=== PATIENT | male | born 1945 | race Caucasian/White ===

== ENCOUNTER 2016-10-05 08:26 | Emergency (ER) | payer MEDICARE, MEDICAID ==
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
--- NOTE | 2016-10-05 10:09 | CR ---
Right humerus There is a comminuted fracture of the mid diaphysis of the humerus with slight offset Pression: Comminuted fracture mid humerus
--- NOTE | 2016-10-05 10:11 | CR ---
Right shoulder Visible at the distal end of the examination is the comminuted fracture of the mid humerus. Head art iculates with the glenoid normally. 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 Impression: Comminuted fracture of the diaphysis of the humerus. AC joint osteoarthropathy without s houlder dislocation
--- NOTE | 2016-10-05 10:12 | CR ---
Right elbow There is no significant joint effusion. The dilatation is normal. No focal or generalized bony abnor malities are seen. Impression: No significant abnormal findings
[2016-10-05] MEDS ORDERED: Morphine 2 MG/ML Syringe IVPUSH ONE (10:19)
--- NOTE | 2016-10-05 11:57 | CR ---
Right humerus There is a comminuted fracture of the mid humerus improved in relative alignment since preceding exa mination Impression: Improved alignment at site of mid humeral comminuted fracture
[2016-10-05 13:53] VITALS: BP 133/69
== END 2016-10-05 13:51 | disposition home or self-care (01) ==
LOC: MW.ED 08:26
DX: S42.351A Displaced comminuted fracture of shaft of humerus, right arm, initial encounter for closed fracture (principal); F32.9 Major depressive disorder, single episode, unspecified; F17.210 Nicotine dependence, cigarettes, uncomplicated; Z93.0 Tracheostomy status; Z79.82 Long term (current) use of aspirin; Z79.899 Other long term (current) drug therapy; Z88.1 Allergy status to other antibiotic agents; Z88.2 Allergy status to sulfonamides; W19.XXXA Unspecified fall, initial encounter
CPT/HCPCS: 36415; 73030; 73060; 73080; 84550; 85025; 96374; 99284; A4566; J2270

== ENCOUNTER 2016-10-07 14:22 | Emergency (ER) | payer MEDICARE, MEDICAID ==
[2016-10-07] MEDS ORDERED: HYDROmorphone 1 MG/ML Syringe IM ONE (14:49)
[2016-10-07] MEDS ORDERED: LORazepam 0.5 MG Tab PO ONE (15:17)
[2016-10-07] MEDS ORDERED: HYDROmorphone 2 MG Tab PO ONE (15:23)
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
[2016-10-07 16:13] VITALS: BP 138/80
== END 2016-10-07 16:12 | disposition home or self-care (01) ==
LOC: MW.ED 14:22
DX: S42.331D Displaced oblique fracture of shaft of humerus, right arm, subsequent encounter for fracture with routine healing (principal); F32.9 Major depressive disorder, single episode, unspecified; Z88.2 Allergy status to sulfonamides; Z88.1 Allergy status to other antibiotic agents; Z79.82 Long term (current) use of aspirin; Z79.899 Other long term (current) drug therapy; X58.XXXD Exposure to other specified factors, subsequent encounter
CPT/HCPCS: 99282; A9270; 99283

== ENCOUNTER 2016-10-09 14:51 | Emergency (ER) | payer MEDICARE, MEDICAID ==
[2016-10-09] MEDS ORDERED: HYDROmorphone 1 MG/ML Syringe IM ONE (15:17)
[2016-10-09] MEDS ORDERED: Diazepam 2 MG Tab PO ONE (15:17)
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
[2016-10-09 19:57] VITALS: BP 129/81
== END 2016-10-09 16:25 | disposition home health service (06) ==
LOC: MW.ED 14:51
DX: S42.341D Displaced spiral fracture of shaft of humerus, right arm, subsequent encounter for fracture with routine healing (principal); F32.9 Major depressive disorder, single episode, unspecified; Z88.2 Allergy status to sulfonamides; Z88.1 Allergy status to other antibiotic agents; Z79.82 Long term (current) use of aspirin; Z79.899 Other long term (current) drug therapy; Z98.890 Other specified postprocedural states; X58.XXXD Exposure to other specified factors, subsequent encounter
CPT/HCPCS: 96372; 99283; A9270; J1170

== ENCOUNTER 2016-10-24 11:21 | Day surgery (SDC) | payer MEDICARE, MEDICAID ==
[~2016-10-24 11:21] MED LIST: ceFAZolin 1 GM in Premix Bag 1 BAG IV SCH
[2016-10-24] MEDS: Lactated Ringers 1,000 ML IV SCH (12:03)
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
[2016-10-24] MEDS ORDERED: fentaNYL 100 MCG/2 ML SDV ONE ×3 (14:25→16:41)
[2016-10-24] MEDS ORDERED: Propofol 200 MG/20 ML SDV ONE ×2 (14:25→14:26)
[2016-10-24] MEDS ORDERED: Midazolam 1 MG/ML 2 ML SDV ONE (14:25)
[2016-10-24] MEDS ORDERED: Lidocaine 2% 5 ML SDV ONE (14:25)
[2016-10-24] MEDS ORDERED: Acetaminophen/HYDROcodone 325-10 MG Tab PO PRN (17:33)
[2016-10-24] MEDS ORDERED: diphenhydrAMINE 25 MG Cap PO PRN (17:33)
[2016-10-24] MEDS ORDERED: Morphine 4 MG/ML Syringe IVPUSH PRN (17:33)
[2016-10-24] MEDS ORDERED: Ondansetron 4 MG/2 ML SDV IV PRN (17:33)
[2016-10-24] MEDS ORDERED: Docusate Sodium 100 MG Cap PO SCH (17:45)
--- NOTE | 2016-10-24 17:50 | PCM.OPNOTE ---
- General Post-Op/Procedure Note Date of Surgery/Procedure: 10/24/16 Operative Procedure(s): I&D R humerus and ORIF R humerus Post-Op Diagnosis: R midshaft humerus fracture with pressure ulcer Anesthesia Technique: General ET Tube Primary Surgeon: Aspen Carolina Parcel Contractor: Yenni Lawrence EBSarah in mLs: 150 Condition: Good Free Text/Narrative:: #[id number]
[2016-10-24] MEDS: fentaNYL 100 MCG/2 ML SDV IVPUSH PRN ×2 (17:57→18:05)
--- NOTE | 2016-10-24 18:25 | PCM.POSTAN ---
POST ANESTHESIA ASSESSMENT - MENTAL STATUS Mental Status: Alert, Oriented - RESPIRATORY Respiratory Status: Respiratory Rate WNL, Airway Patent, O2 Saturation Stable - CARDIOVASCULAR CV Status: Pulse Rate WNL, Blood Pressure Stable - GASTROINTESTINAL GI Status: No Symptoms - PAIN Pain Score: 0 - POST OP HYDRATION Hydration Status: Adequate & Stable
[2016-10-24] MEDS ORDERED: Phenytoin 100 MG Cap.ER PO SCH (21:00)
[2016-10-24] MEDS: risperiDONE 0.25 MG Tab PO SCH (21:40)
[2016-10-24] MEDS: Famotidine 20 MG Tab PO SCH (21:45)
[2016-10-24] MEDS: ceFAZolin 2 GM in Premix Bag 1 BAG IV SCH (22:39)
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
[2016-10-25] MEDS: ceFAZolin 2 GM in Premix Bag 1 BAG IV SCH (05:08)
--- NOTE | 2016-10-25 05:55 | PCM48HPAN ---
Post Anesthesia Note - EVALUATION WITHIN 48HRS OF ANESTHETIC Vital Signs in Normal Range: Yes Patient Participated in Evaluation: Yes (back to baseline-h/o brain trauma) Respiratory Function Stable: Yes (on 2 L O2) Airway Patent: Yes Cardiovascular Function Stable: Yes Hydration Status Stable: Yes Pain Control Satisfactory: Yes Nausea and Vomiting Control Satisfactory: Yes Mental Status Recovered: Yes (back to baseline)
[2016-10-25] MEDS: Lactated Ringers 1,000 ML IV SCH (06:49)
[2016-10-25 07:52] VITALS: BP 116/63
[2016-10-25] MEDS: risperiDONE 0.25 MG Tab PO SCH (08:19)
[2016-10-25] MEDS: Famotidine 20 MG Tab PO SCH (08:19)
--- NOTE | 2016-10-25 08:26 | PCM.SURGPN ---
- General Info Date of Service: 10/25/16 Date of Surgery/Procedure: 10/24/16 POD#: 1 Functional Status: Reports: Pain Controlled, Tolerating Diet, Ambulating, Urinating - Review of Systems General: Reports: No Symptoms HEENT: Reports: No Symptoms Pulmonary: Reports: No Symptoms Cardiovascular: Reports: No Symptoms Gastrointestinal: Reports: No Symptoms Genitourinary: Reports: No Symptoms Musculoskeletal: Reports: Arm Pain, Joint Swelling Skin: Reports: No Symptoms Neurological: Reports: Pre-Existing Deficit, Trouble Speaking - Patient Data Vitals - Most Recent: Last Vital Signs Temp 36.3 C 10/25/16 07:51 Pulse 109 H 10/25/16 07:51 Resp 20 10/25/16 07:51 BP 116/63 10/25/16 07:51 Pulse Ox 93 L 10/25/16 07:51 Weight - Most Recent: 79.379 kg I&O - Last 24 Hours: Intake & Output 10/24/16 10/25/16 10/25/16 22:59 06:59 14:59 Intake Total 1450 1100 Output Total 200 Balance 1250 1100 Lab Results Last 24 Hrs: Laboratory Results - last 24 hr 10/24/16 10/25/16 Range/Units 12:32 07:42 Hgb 10.6 L (13.0-17.0) g/dL Hct 32.4 L (38.0-50.0) % Blood Type A POSITIVE Antibody Screen NEGATIVE Med Orders - Current: Current Medications Hydrocodone Bitart/Acetaminophen (Henefer 325-10 Mg) 1 - 2 tab PO Q4H PRN PRN Reason: Pain Last Admin: 10/25/16 06:24 Dose: 2 tab Aspirin (Aspirin) 81 mg PO DAILY [facility] Last Admin: 10/25/16 08:19 Dose: 81 mg Diphenhydramine HCl (Benadryl) 25 - 50 mg PO Q6H PRN PRN Reason: Itching Docusate Sodium (Colace) 100 mg PO ASDIRECTED [facility] Famotidine (Pepcid) 20 mg PO BID [facility] Last Admin: 10/25/16 08:19 Dose: 20 mg Fentanyl (Sublimaze) 50 mcg IVPUSH Q5M PRN PRN Reason: Pain (severe 7-10) Stop: 10/25/16 17:37 Last Admin: 10/24/16 18:05 Dose: 50 mcg Cefazolin Sodium/Dextrose 1 gm (/ Premix) 50 mls @ 100 mls/hr IV ONCALL [facility] Lactated Ringer's (Ringers, Lactated) 1,000 mls @ 100 mls/hr IV ASDIRECTED [facility] Last Admin: 10/25/16 06:49 Dose: 100 mls/hr Morphine Sulfate (Morphine) 1 - 3 mg IVPUSH Q3H PRN PRN Reason: Pain Last Admin: 10/24/16 19:45 Dose: 2 mg Ondansetron HCl (Zofran) 4 mg IV Q6HR PRN PRN Reason: NAUSEA/VOMITING Desvenlafaxine Succinate [Pristiq] 100 Mg 1 each PO DAILY [facility] Phenobarbital (Phenobarbital) 180 mg PO BEDTIME [facility] Last Admin: 10/24/16 21:40 Dose: 180 mg Phenytoin Sodium (Dilantin) 50 mg PO DAILY [facility] Phenytoin Sodium (Phenytoin) 300 mg PO BEDTIME [facility] Last Admin: 10/24/16 21:45 Dose: 300 mg Polyethylene Glycol (Miralax) 17 gm PO DAILY [facility] Last Admin: 10/25/16 08:21 Dose: 17 gm Risperidone (Risperidal) 0.25 mg PO BID [facility] Last Admin: 10/25/16 08:19 Dose: 0.25 mg Discontinued Medications Fentanyl (Sublimaze) Confirm Administered Dose 200 mcg .ROUTE .STK-MED ONE Stop: 10/24/16 14:26 Fentanyl (Sublimaze) Confirm Administered Dose 100 mcg .ROUTE .STK-MED ONE Stop: 10/24/16 15:39 Fentanyl (Sublimaze) Confirm Administered Dose 100 mcg .ROUTE .STK-MED ONE Stop: 10/24/16 16:42 Cefoxitin Sodium (Mefoxin In Dextrose,Iso-Osm 1 Gm/50 Ml) Confirm Administered Dose 50 mls @ as directed .ROUTE .STK-MED ONE Stop: 10/24/16 14:25 Cefazolin Sodium/Dextrose 2 gm (/ Premix) 50 mls @ 100 mls/hr IV Q8HR [facility] Stop: 10/25/16 06:29 Last Admin: 10/25/16 05:08 Dose: 100 mls/hr Lidocaine (Xylocaine-Mpf 2%) Confirm Administered Dose 10 ml .ROUTE .STK-MED ONE Stop: 10/24/16 14:26 Midazolam HCl (Versed 1 Mg/Ml) Confirm Administered Dose 2 mg .ROUTE .STK-MED ONE Stop: 10/24/16 14:26 Propofol (Diprivan 20 Ml) Confirm Administered Dose 400 mg .ROUTE .STK-MED ONE Stop: 10/24/16 14:26 Propofol (Diprivan 20 Ml) Confirm Administered Dose 200 mg .ROUTE .STK-MED ONE Stop: 10/24/16 14:27 - Exam Wound/Incisions: Dressing Dry and Intact General: Alert, Oriented Lungs: Normal Respiratory Effort Cardiovascular: Regular Rate Extremities: Other (RUE in sling. Dressing dry and in place. Has previous right sided weakness, no active ROM.) Neurological: No New Focal Deficit Psy/Mental Status: Alert, Normal Affect, Normal Mood - Problem List Review Problem List Initiated/Reviewed/Updated: Yes - My Orders Last 24 Hours: Active Orders 24 hr Category Date Time Status Admission Status [Patient Status] [ADT] Routine ADT 10/24/16 18:29 Active Activity as Tolerated [RC] .Routine Care 10/24/16 17:34 Active Insert Cheung Catheter [Insert Urinary Catheter] [OM.PC] Care 10/24/16 13:45 Ordered Q24H Intake and Output [RC] ASDIRECTED Care 10/24/16 17:34 Active Neurovascular Check [RC] Q2HR Care 10/24/16 17:34 Active Notify Provider Vital Signs [RC] ASDIRECTED Care 10/24/16 17:34 Active RT Incentive Spirometry [RC] ASDIRECTED Care 10/24/16 17:34 Active Remove Cheung Catheter [Urinary Catheter Removal] [RC] Care 10/24/16 22:15 Active Per Unit Routine Vital Signs [RC] Q4H Care 10/24/16 17:34 Active Fluoro Up To 1Hr [CR] Routine Exams 10/24/16 17:11 Taken HEMOGLOBIN/HEMATOCRIT,HH [HEME] DAILY Lab 10/26/16 07:00 Ordered HEMOGLOBIN/HEMATOCRIT,HH [HEME] DAILY Lab 10/27/16 07:00 Ordered Acetaminophen/HYDROcodone [Henefer 325-10 MG] Med 10/24/16 17:33 Active 1 - 2 tab PO Q4H PRN Aspirin Med 10/25/16 09:00 Active 81 mg PO DAILY Docusate Sodium [Colace] Med 10/24/16 17:45 Active 100 mg PO ASDIRECTED Famotidine [Pepcid] Med 10/24/16 21:00 Active 20 mg PO BID Morphine Med 10/24/16 17:33 Active 1 - 3 mg IVPUSH Q3H PRN Ondansetron [Zofran] Med 10/24/16 17:33 Active 4 mg IV Q6HR PRN PHENobarbital Med 10/24/16 21:00 Active 180 mg PO BEDTIME Patient's Own Medication [Ptom] Med 10/25/16 09:00 Active 1 each PO DAILY Phenytoin Med 10/24/16 21:00 Active 300 mg PO BEDTIME Phenytoin [Dilantin] Med 10/25/16 09:00 Active 50 mg PO DAILY Polyethylene Glycol 3350 [MiraLAX] Med 10/25/16 09:00 Active 17 gm PO DAILY diphenhydrAMINE [Benadryl] Med 10/24/16 17:33 Active 25 - 50 mg PO Q6H PRN fentaNYL [Sublimaze] Med 10/24/16 17:37 Active 50 mcg IVPUSH Q5M PRN risperiDONE [RisperiDAL] Med 10/24/16 21:00 Active 0.25 mg PO BID Ice Therapy [OM.PC] Routine Oth 10/24/16 17:34 Ordered Medication Orders Hydrocodone Bitart/Acetaminophen (Henefer 325-10 Mg) 1 - 2 tab PO Q4H PRN PRN Reason: Pain Last Admin: 10/25/16 06:24 Dose: 2 tab Aspirin (Aspirin) 81 mg PO DAILY [facility] Last Admin: 10/25/16 08:19 Dose: 81 mg Diphenhydramine HCl (Benadryl) 25 - 50 mg PO Q6H PRN PRN Reason: Itching Docusate Sodium (Colace) 100 mg PO ASDIRECTED KT Famotidine (Pepcid) 20 mg PO BID [facility] Last Admin: 10/25/16 08:19 Dose: 20 mg Admin: 10/24/16 21:45 Dose: 20 mg Fentanyl (Sublimaze) 50 mcg IVPUSH Q5M PRN PRN Reason: Pain (severe 7-10) Stop: 10/25/16 17:37 Last Admin: 10/24/16 18:05 Dose: 50 mcg Admin: 10/24/16 17:57 Dose: 50 mcg Cefazolin Sodium/Dextrose 1 gm (/ Premix) 50 mls @ 100 mls/hr IV ONCALL [facility] Lactated Ringer's (Ringers, Lactated) 1,000 mls @ 100 mls/hr IV ASDIRECTED [facility] Last Admin: 10/25/16 06:49 Dose: 100 mls/hr Infusion: 10/24/16 22:03 Dose: 100 mls/hr Admin: 10/24/16 12:03 Dose: 100 mls/hr Morphine Sulfate (Morphine) 1 - 3 mg IVPUSH Q3H PRN PRN Reason: Pain Last Admin: 10/24/16 19:45 Dose: 2 mg Ondansetron HCl (Zofran) 4 mg IV Q6HR PRN PRN Reason: NAUSEA/VOMITING Desvenlafaxine Succinate [Pristiq] 100 Mg 1 each PO DAILY [facility] Phenobarbital (Phenobarbital) 180 mg PO BEDTIME [facility] Last Admin: 10/24/16 21:40 Dose: 180 mg Phenytoin Sodium (Dilantin) 50 mg PO DAILY [facility] Phenytoin Sodium (Phenytoin) 300 mg PO BEDTIME [facility] Last Admin: 10/24/16 21:45 Dose: 300 mg Polyethylene Glycol (Miralax) 17 gm PO DAILY [facility] Last Admin: 10/25/16 08:21 Dose: 17 gm Risperidone (Risperidal) 0.25 mg PO BID [facility] Last Admin: 10/25/16 08:19 Dose: 0.25 mg Admin: 10/24/16 21:40 Dose: 0.25 mg - Assessment Assessment (Free Text/Narrative):: Patient alert in bed this AM. Denies pain today. Tolerating diet. Hgb 10.6. VSS. - Plan Plan (Free Text/Narrative):: Continue pain management. Patient DC leona today.
[2016-10-25] MEDS ORDERED: Phenytoin 50 MG Tab.Chew PO SCH (09:00)
[2016-10-25] MEDS ORDERED: Polyethylene Glycol 3350 Powder 17 GM Packet PO SCH (09:00)
[2016-10-25] MEDS ORDERED: Aspirin 81 MG Tab.Chew PO SCH (09:00)
[2016-10-25] MEDS ORDERED: Desvenlafaxine Succinate [Pristiq] 100 MG PO SCH (09:00)
--- NOTE | 2016-10-25 09:47 | CR ---
EXAMINATION: Right humerus HISTORY: ORIF COMPARISON: 10/18/2016 TECHNIQUE: 6 views FINDINGS/IMPRESSION: Screw and plate hardware is noted fixating the comminuted mid right humerus frac ture.
--- NOTE | 2016-10-25 14:57 | PCM.SN ---
- Free Text/Narrative Note: Discharge summary See discharge plan for complete list of discharge medications and instructions. Dictation #: [id number]
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
== END 2016-10-25 10:10 | disposition home or self-care (01) ==
LOC: MW.SDS 11:21 → MW.MS 17:50 → UNDOADMOB 17:50 → MW.MS 18:29 → MW.SDS 10-25 10:10
PROVIDERS: ATTEND Orthopaedic Surgery
PROC: 0PSF04Z Reposition Right Humeral Shaft with Internal Fixation Device, Open Approach (ICD-10-PCS; principal; 2016-10-24)
DX: S42.301A Unspecified fracture of shaft of humerus, right arm, initial encounter for closed fracture (principal); L89.899 Pressure ulcer of other site, unspecified stage; Z88.1 Allergy status to other antibiotic agents; Z79.82 Long term (current) use of aspirin; Z79.2 Long term (current) use of antibiotics; Z79.899 Other long term (current) drug therapy; K21.9 Gastro-esophageal reflux disease without esophagitis; J30.9 Allergic rhinitis, unspecified; Z86.73 Personal history of transient ischemic attack (TIA), and cerebral infarction without residual deficits
CPT/HCPCS: 24515; 36415; 76000; 85014; 85018; 86850; 86900; 86901; A9270; C1713; J0690; J0694; J2250; J2270; J3010; J7120; 00400; J2704

== ENCOUNTER 2017-02-16 13:43 | Emergency (ER) | payer MEDICARE, MEDICAID ==
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
[2017-02-16] MEDS ORDERED: Morphine 10 MG/ML Syringe IV ONE (15:13)
[2017-02-16 17:28] VITALS: BP 126/68
--- NOTE | 2017-02-17 16:46 | CR ---
EXAM DATE: 02/16/17 PATIENT'S AGE: 71 Patient: ANA FLORES Facility: [place], [place] Site . Site : 1945 Study: XRay Extremity Right ELBOW [id number]/21/2017 3:23:50 PM Ordering Physician: Zahira Ahumada Final Report: Indication: Pain. Technique: Right elbow three views. Comparison: Right humerus 02/16/2017 and 12/29/2016. Findings: No acute fracture or dislocation. Cortical irregularity involving the lateral epicondyle suggesting remote epicondylitis. Plate and screw fixation of the distal humerus appears intact. No evidence of joint effusion or radiopaque foreign body. Impression: No acute osseous abnormality of the right elbow. Dictated by Jeromy Giang MD @ 02/16/2017 4:22:50 PM Dictated by: Jeromy Giang MD @ 02/16/2017 16:22:57 (Electronic Signature) Report Signed by Proxy. NICHOLE
--- NOTE | 2017-02-17 16:48 | CR ---
EXAM DATE: 02/16/17 PATIENT'S AGE: 71 Patient: ANA FLORES Facility: [place], [place] Site . Site : 1945 Study: XRay Shoulder Right [id number]/21/2017 3:21:49 PM Ordering Physician: Zahira Ahumada Final Report: Indication: Pain. Technique: Right shoulder two views. Comparison: Right humerus radiographs 12/29/2016. Findings: There is an acute obliquely oriented mildly impacted fracture involving the proximal diaphysis of the humerus. Plate and screw fixation of remote mid diaphyseal fracture with associated callus formation and angulation has not significantly changed. Degenerative changes of the acromioclavicular joint. No evidence of glenohumeral joint dislocation. Impression: Acute mildly impacted fracture of the proximal humeral diaphysis. No glenohumeral dislocation. Dictated by Jeromy Giang MD @ 02/16/2017 4:19:33 PM Dictated by: Jeromy Giang MD @ 02/16/2017 16:19:55 (Electronic Signature) Report Signed by Proxy. [facility]
--- NOTE | 2017-02-17 16:49 | CR ---
EXAM DATE: 02/16/17 PATIENT'S AGE: 71 Patient: ANA FLORES Facility: [place], [place] Site . Site : 1945 Study: XRay Extremity Right HUMERUS [id number]/21/2017 3:24:35 PM Ordering Physician: Zahira Ahumada Final Report: Indication: Pain. Technique: Right humerus two views. Comparison: Right humerus 12/29/2016. Findings: There is an acute obliquely oriented mildly impacted fracture involving the proximal diaphysis of the right humerus. There is mild medial and dorsal angulation of the distal fracture fragment. Lateral plate and screw fixation of the prior mid diaphyseal humerus fracture with associated callus formation and angulation is unchanged. Lateral soft tissue swelling. No radiopaque foreign body demonstrated. Impression: Acute mildly impacted and angulated fracture of the proximal right humerus. Dictated by Jeromy Giang MD @ 02/16/2017 4:24:50 PM Dictated by: Jeromy Giang MD @ 02/16/2017 16:25:05 (Electronic Signature) Report Signed by Proxy. [facility]
== END 2017-02-16 17:15 | disposition home or self-care (01) ==
LOC: MW.ED 13:43
DX: S42.201A Unspecified fracture of upper end of right humerus, initial encounter for closed fracture (principal); F17.210 Nicotine dependence, cigarettes, uncomplicated; F32.9 Major depressive disorder, single episode, unspecified; Z79.82 Long term (current) use of aspirin; Z79.899 Other long term (current) drug therapy; Z88.2 Allergy status to sulfonamides; Z88.1 Allergy status to other antibiotic agents; Z98.890 Other specified postprocedural states; X58.XXXA Exposure to other specified factors, initial encounter
CPT/HCPCS: 73030; 73060; 73080; 96374; 99283; J2270

== ENCOUNTER 2018-04-04 17:23 | Emergency (ER) | payer MEDICARE, MEDICAID ==
[2018-04-04 17:33] VITALS: BP 141/90
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
== END 2018-04-04 18:15 | disposition home or self-care (01) ==
LOC: MW.ED 17:23
DX: R56.9 Unspecified convulsions (principal); Z79.82 Long term (current) use of aspirin; Z79.899 Other long term (current) drug therapy; Z88.8 Allergy status to other drugs, medicaments and biological substances; Z90.49 Acquired absence of other specified parts of digestive tract; Z88.2 Allergy status to sulfonamides
CPT/HCPCS: 99284

== ENCOUNTER 2019-10-26 19:38 | Emergency (ER) | payer MEDICARE, MEDICAID ==
[2019-10-26] MEDS ORDERED: Sodium Chloride 0.9% 2.5 ML Syringe FLUSH PRN ×2 (19:47→22:16)
[2019-10-26] MEDS ORDERED: Sodium Chloride 0.9% 10 ML Syringe FLUSH PRN ×2 (19:47→22:16)
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
[2019-10-26 20:59] LABS: CARBON DIOXIDE,CO2 24.7 mmol/L (21.0-32.0); POTASSIUM,K 4.5 mmol/L (3.5-5.1)
--- NOTE | 2019-10-26 21:59 | CR ---
INDICATION: Shortness of breath. COMPARISON: 10/21/2016. FINDINGS: A portable AP semi upright view of the chest was obtained. The cardiac silhouette and pulmonary vasculature are within normal limits. There is an infiltrate in the right lung base. The lungs otherwise are clear. IMPRESSION: Right lung base pneumonia. Dictated by Ramiro Otero MD @ Oct 26 2019 9:56PM Signed by Dr. Ramiro Otero @ Oct 26 2019 9:58PM
[2019-10-26] MEDS ORDERED: Sodium Chloride 0.9% 1,000 ML IRR SCH ×2 (22:15→23:00)
[2019-10-26] MEDS ORDERED: Piperacillin/Tazobactam 4.5 GM in Sodium Chloride 0.9% 100 ML IV ONE (22:16)
[2019-10-26] MEDS ORDERED: Vancomycin 1.5 GM in Dextrose 5% in Water 250 ML IV ONE ×2 (22:16)
[2019-10-26] MEDS ORDERED: Dexamethasone 10 MG/ML SDV IVPUSH ONE (23:02)
[2019-10-26] MEDS ORDERED: Azithromycin 500 MG in Sodium Chloride 0.9% 250 ML IV SCH (23:15)
[2019-10-27] MEDS ORDERED: Sodium Chloride 0.9% 250 ML IV SCH (00:45)
[2019-10-27] MEDS ORDERED: Sodium Chloride 0.9% 500 ML IV SCH (00:45)
[2019-10-27 01:06] VITALS: BP 122/88; PULSE 82
== END 2019-10-27 01:37 | disposition other institution (70) ==
LOC: MW.ED 19:38
DX: A41.89 Other specified sepsis (principal); U07.1 COVID-19; R65.20 Severe sepsis without septic shock; J12.89 Other viral pneumonia; N17.9 Acute kidney failure, unspecified; E87.2 Acidosis; R09.02 Hypoxemia; K21.9 Gastro-esophageal reflux disease without esophagitis; R56.9 Unspecified convulsions; F32.9 Major depressive disorder, single episode, unspecified; Z88.2 Allergy status to sulfonamides; Z79.82 Long term (current) use of aspirin; Z79.899 Other long term (current) drug therapy
CPT/HCPCS: 36415; 36600; 71045; 80053; 82803; 83605; 83880; 84484; 85025; 85379; 85610; 86140; 87040; 93005; 96361; 96365; 96366; 96367; 96368; 96375; 99291; 99292; J0456; J1100; J2543; J3370; J7050; J7060; U0002

== ENCOUNTER 2019-11-24 11:17 | Emergency (ER) | payer MEDICARE, MEDICAID ==
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
[2019-11-24 12:10] LABS: BLOOD UREA NITROGEN,BUN 19 mg/dL (7.0-18.0); CARBON DIOXIDE,CO2 29.3 mmol/L (21.0-32.0); CHLORIDE,CL 103 mmol/L (98-107); GLUCOSE RANDOM 77 mg/dL (74-106); LIPASE 151 U/L (73-393); POTASSIUM,K 4.5 mmol/L (3.5-5.1); SODIUM,NA 139 mmol/L (136-148)
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
[2019-11-24 16:21] VITALS: BP 115/73; PULSE 69
== END 2019-11-24 13:29 | disposition home or self-care (01) ==
LOC: MW.ED 11:17
DX: R10.9 Unspecified abdominal pain (principal); K21.9 Gastro-esophageal reflux disease without esophagitis; F32.9 Major depressive disorder, single episode, unspecified; Z79.82 Long term (current) use of aspirin; Z88.2 Allergy status to sulfonamides; Z88.1 Allergy status to other antibiotic agents; Z79.899 Other long term (current) drug therapy
CPT/HCPCS: 36415; 74176; 74176-26; 80053; 83690; 84484; 85025; 93005; 99284; 99285-25

== ENCOUNTER 2022-04-03 10:57 | Inpatient (IN) | payer MEDICARE, MEDICAID ==
[2022-04-03 11:39] LABS: CARBON DIOXIDE,CO2 26.4 mmol/L (21.0-32.0); POTASSIUM,K 3.5 mmol/L (3.5-5.1)
[2022-04-03 12:13] LABS: CORONAVIRUS COVID-19 NAA POSITIVE (NEGATIVE); INFLUENZA A NAA NEGATIVE (NEGATIVE); INFLUENZA B NAA NEGATIVE (NEGATIVE); RESPIRATORY SYNCYTIAL VIR NAA NEGATIVE (NEGATIVE)
[2022-04-03] MEDS ORDERED: Dexamethasone 10 MG/ML SDV IVPUSH ONE (15:18)
[2022-04-03] MEDS ORDERED: Iopamidol 755 MG/ML 500 ML Multipack Bottle IVPUSH STA (16:14)
[2022-04-03] MEDS ORDERED: Albuterol/Ipratropium 3.0-0.5 MG/3 ML Neb Soln NEB PRN (20:08)
[2022-04-03] MEDS ORDERED: Dexamethasone 4 MG Tab PO SCH (20:15)
[2022-04-03] MEDS: Enoxaparin 40 MG/0.4 ML Syringe SUBCUT SCH (20:46)
[2022-04-03 20:55] LABS: CARBON DIOXIDE,CO2 27.2 mmol/L (21.0-32.0); POTASSIUM,K 3.8 mmol/L (3.5-5.1)
[2022-04-03] MEDS ORDERED: REMDESIVIR 200 MG in Sodium Chloride 0.9% 250 ML IV ONE (22:00)
[2022-04-04 06:51] LABS: CARBON DIOXIDE,CO2 30.8 mmol/L (21.0-32.0); POTASSIUM,K 3.9 mmol/L (3.5-5.1)
[2022-04-04] MEDS: Dexamethasone 4 MG Tab PO SCH (08:24)
[2022-04-04] MEDS: lamoTRIgine 100 MG Tab PO SCH ×2 (09:57→20:28)
[2022-04-04] MEDS ORDERED: Ondansetron 4 MG/2 ML SDV IVPUSH PRN (10:55)
[2022-04-04] MEDS ORDERED: Docusate Sodium 100 MG Cap PO PRN (10:55)
[2022-04-04] MEDS ORDERED: Sodium Chloride 0.9% 2.5 ML Syringe FLUSH PRN (10:55)
[2022-04-04] MEDS ORDERED: Acetaminophen 325 MG Tab PO PRN (10:55)
[2022-04-04] MEDS ORDERED: Sodium Chloride 0.9% 10 ML Syringe FLUSH PRN (10:55)
[2022-04-04] MEDS ORDERED: Polyethylene Glycol 3350 Powder 17 GM Packet PO PRN (10:55)
[2022-04-04] MEDS: Desvenlafaxine [Desvenlafaxine Er] 100 MG Tab.Er.24h PO SCH (11:47)
[2022-04-04] MEDS: Albuterol/Ipratropium 3.0-0.5 MG/3 ML Neb Soln NEB SCH ×4 (12:44→21:32)
[2022-04-04] MEDS ORDERED: LORazepam 2 MG/ML SDV IVPUSH PRN (15:27)
[2022-04-04] MEDS: risperiDONE 0.25 MG Tab PO SCH (20:28)
[2022-04-04] MEDS: Phenytoin 100 MG Cap.ER PO SCH (20:28)
[2022-04-04] MEDS: Enoxaparin 40 MG/0.4 ML Syringe SUBCUT SCH (20:29)
[2022-04-04] MEDS: PHENOBARBITAL 97.2 MG PO SCH (20:29)
[2022-04-04] MEDS: REMDESIVIR 100 MG in Sodium Chloride 0.9% 100 ML IV SCH (20:32)
[2022-04-05] MEDS: Albuterol/Ipratropium 3.0-0.5 MG/3 ML Neb Soln NEB SCH ×6 (01:26→22:26)
[2022-04-05] MEDS: Pantoprazole 40 MG Tab.CR PO SCH (07:03)
[2022-04-05 07:44] LABS: CARBON DIOXIDE,CO2 27.7 mmol/L (21.0-32.0); POTASSIUM,K 3.7 mmol/L (3.5-5.1)
[2022-04-05] MEDS: Dexamethasone 4 MG Tab PO SCH (09:45)
[2022-04-05] MEDS: Desvenlafaxine [Desvenlafaxine Er] 100 MG Tab.Er.24h PO SCH (09:46)
[2022-04-05] MEDS: lamoTRIgine 100 MG Tab PO SCH ×2 (09:46→20:01)
[2022-04-05] MEDS ORDERED: Benzonatate 100 MG Cap PO PRN (11:26)
[2022-04-05] MEDS: REMDESIVIR 100 MG in Sodium Chloride 0.9% 100 ML IV SCH (19:56)
[2022-04-05] MEDS: Enoxaparin 40 MG/0.4 ML Syringe SUBCUT SCH (20:01)
[2022-04-05] MEDS: Phenytoin 100 MG Cap.ER PO SCH (20:02)
[2022-04-05] MEDS: risperiDONE 0.25 MG Tab PO SCH (20:02)
[2022-04-05] MEDS: PHENOBARBITAL 97.2 MG PO SCH (20:02)
[2022-04-06] MEDS: Albuterol/Ipratropium 3.0-0.5 MG/3 ML Neb Soln NEB SCH ×6 (02:53→21:58)
[2022-04-06] MEDS: Pantoprazole 40 MG Tab.CR PO SCH ×2 (06:03→06:51)
[2022-04-06 06:41] LABS: POTASSIUM,K 3.8 mmol/L (3.5-5.1)
[2022-04-06] MEDS: Dexamethasone 4 MG Tab PO SCH (09:45)
[2022-04-06] MEDS: lamoTRIgine 100 MG Tab PO SCH ×2 (09:46→20:14)
[2022-04-06] MEDS: Desvenlafaxine [Desvenlafaxine Er] 100 MG Tab.Er.24h PO SCH (09:59)
[2022-04-06] MEDS ORDERED: REMDESIVIR 100 MG in Sodium Chloride 0.9% 100 ML IV SCH (16:00)
[2022-04-06] MEDS: risperiDONE 0.25 MG Tab PO SCH (20:14)
[2022-04-06] MEDS: PHENOBARBITAL 97.2 MG PO SCH (20:15)
[2022-04-06] MEDS: Phenytoin 100 MG Cap.ER PO SCH (20:15)
[2022-04-06] MEDS: Enoxaparin 40 MG/0.4 ML Syringe SUBCUT SCH (20:16)
[2022-04-07] MEDS: Albuterol/Ipratropium 3.0-0.5 MG/3 ML Neb Soln NEB SCH ×3 (01:06→10:20)
[2022-04-07] MEDS: Pantoprazole 40 MG Tab.CR PO SCH ×2 (06:11→07:45)
[2022-04-07 06:44] LABS: CARBON DIOXIDE,CO2 26.3 mmol/L (21.0-32.0); POTASSIUM,K 3.9 mmol/L (3.5-5.1)
[2022-04-07] MEDS: lamoTRIgine 100 MG Tab PO SCH (08:57)
[2022-04-07] MEDS: Dexamethasone 4 MG Tab PO SCH (08:58)
[2022-04-07] MEDS: Desvenlafaxine [Desvenlafaxine Er] 100 MG Tab.Er.24h PO SCH (09:01)
[2022-04-07] MEDS ORDERED: REMDESIVIR 100 MG in Sodium Chloride 0.9% 100 ML IV SCH (12:00)
[2022-04-07 12:28] VITALS: BP 118/69; PULSE 83
== END 2022-04-07 13:45 | DRG 177 ==
LOC: MW.ED 10:57 → MW.MS 15:41
PROVIDERS: ADMIT Hospitalist; ATTEND Hospitalist
PROC: 8E0ZXY6 Isolation (ICD-10-PCS; principal; 2022-04-03)
PROC: XW033E5 Introduction of Remdesivir Anti-infective into Peripheral Vein, Percutaneous Approach, New Technology Group 5 (ICD-10-PCS; 2022-04-03)
PROC: 3E0333Z Introduction of Anti-inflammatory into Peripheral Vein, Percutaneous Approach (ICD-10-PCS; 2022-04-03)
DX: U07.1 COVID-19 (principal); J12.82 Pneumonia due to coronavirus disease 2019; F70 Mild intellectual disabilities; J96.01 Acute respiratory failure with hypoxia; J43.9 Emphysema, unspecified; G40.909 Epilepsy, unspecified, not intractable, without status epilepticus; F32.A Depression, unspecified; K21.9 Gastro-esophageal reflux disease without esophagitis; Z79.82 Long term (current) use of aspirin; Z79.899 Other long term (current) drug therapy; Z79.52 Long term (current) use of systemic steroids; Z88.2 Allergy status to sulfonamides; Z88.8 Allergy status to other drugs, medicaments and biological substances; Z87.820 Personal history of traumatic brain injury; Z90.49 Acquired absence of other specified parts of digestive tract
CPT/HCPCS: 0241U; 36415; 71045; 71045-26; 71260; 71260-26; 80048; 80053; 82248; 83735; 85025; 94640; 97162-GP; 97530-GP; A9270-GY; J0248; J1100; J1650; J7050; J7620-GY; J8540; Q9967

== ENCOUNTER 2024-01-24 11:34 | Inpatient (IN) | payer MEDICARE, MEDICAID ==
[2024-01-24] MEDS ORDERED: Sodium Chloride 0.9% 2.5 ML Syringe FLUSH PRN ×2 (11:38→16:20)
[2024-01-24] MEDS ORDERED: Sodium Chloride 0.9% 10 ML Syringe FLUSH PRN ×2 (11:38→16:20)
[2024-01-24 12:03] LABS: HEMATOCRIT 46.6 % (42.0-52.0); HEMOGLOBIN 14.9 g/dL (14.0-18.0); MEAN CORPUSCULAR HEMOGLOBIN 31.3 pg (28.0-32.0); MEAN CORPUSCULAR VOLUME 97.9 fL (83.0-99.0); MEAN PLATELET VOLUME 10.2 fL (9.4-12.4); PLATELET COUNT,PLT 272 K/uL (150-400); RED BLOOD CELL COUNT 4.76 M/uL (4.52-5.90); WHITE BLOOD CELL COUNT,WBC 25.03 K/uL (3.9-11.3)
[2024-01-24] MEDS: Piperacillin/Tazobactam 4.5 GM in Sodium Chloride 0.9% 100 ML IV ONE (12:17)
[2024-01-24] MEDS: Ondansetron 4 MG/2 ML SDV IVPUSH ONE (12:17)
[2024-01-24] MEDS: Sodium Chloride 0.9% 1,000 ML IV ONE (12:17)
[2024-01-24 12:32] LABS: BAND PERCENT MAN 12 %; BASOPHILS ABSOLUTE MAN 0.25 K/uL (0.00-0.20); BASOPHILS PERCENT MAN 1 % (0-1); LYMPHOCYTES PERCENT MAN 2 % (24-44); MONOCYTES ABSOLUTE MAN 0.25 K/uL (0.00-0.80); MONOCYTES PERCENT MAN 1 % (0-8); SEG NEUTROPHILS ABSOLUTE MAN 21.03 K/uL (1.80-7.70); SEG NEUTROPHILS PERCENT MAN 84 % (41-71)
[2024-01-24 12:44] LABS: A/G RATIO 0.7 (0.9-1.6); ALBUMIN 3.3 g/dL (3.4-5.0); BILIRUBIN TOTAL 0.7 mg/dL (0.2-1.0); CREATININE 1.6 mg/dL (0.8-1.3); EST CRCL DRUG DOSING (CG) 41.83 mL/min; LACTIC ACID 1.9 mmol/L (0.4-2.0); PROTEIN TOTAL,TP 7.8 g/dL (6.4-8.2)
[2024-01-24] MEDS: Iopamidol 755 MG/ML 500 ML Multipack Bottle IVPUSH STA (13:39)
[2024-01-24] MEDS: Sodium Chloride 0.9% 500 ML IV ONE (14:36)
[2024-01-24] MEDS: VANCOmycin 1.75 GM/350 ML 1.75 GM in Premix Bag 1 BAG IV ONE (14:56)
[2024-01-24 15:03] LABS: APPEARANCE,URINE CLEAR; BILIRUBIN,URINE NEGATIVE (NEGATIVE); COLOR,URINE YELLOW; GLUCOSE,URINE NEGATIVE (NEGATIVE); KETONES,URINE NEGATIVE (NEGATIVE); LEUKOCYTE ESTERASE,URINE NEGATIVE (NEGATIVE); NITRITE,URINE NEGATIVE (NEGATIVE); OCCULT BLOOD,URINE TRACE-INTACT (NEGATIVE); PROTEIN,URINE NEGATIVE (NEGATIVE)
[2024-01-24 15:17] LABS: BACTERIA,URINE FEW (NEGATIVE); EPITHELIAL CELLS,URINE RARE (NONE-FEW); MUCUS,URINE LIGHT (NONE-MOD); WBC,URINE 0-3 (0-5/HPF)
[2024-01-24 15:28] LABS: CORONAVIRUS COVID-19 NAA NEGATIVE (NEGATIVE); INFLUENZA A NAA NEGATIVE (NEGATIVE); INFLUENZA B NAA NEGATIVE (NEGATIVE)
[2024-01-24] MEDS ORDERED: Ondansetron 4 MG/2 ML SDV IVPUSH PRN (16:20)
[2024-01-24] MEDS ORDERED: Acetaminophen 325 MG Tab PO PRN (16:20)
[2024-01-24] MEDS ORDERED: Albuterol 0.083% 2.5 MG/3 ML Neb Soln INH PRN (16:33)
[2024-01-24] MEDS: Azithromycin 500 MG in Sodium Chloride 0.9% 250 ML IV SCH (18:13)
[2024-01-24] MEDS: Cefepime 2 GM in Sodium Chloride 0.9% 50 ML IV SCH (18:13)
[2024-01-24] MEDS: Heparin Sodium 5,000 Units/ML Vial SUBCUT SCH (18:14)
[2024-01-24] MEDS: Pantoprazole 40 MG in Sodium Chloride 0.9% 10 ML IVPUSH ONE (18:14)
[2024-01-24] MEDS: Lactulose Soln 10 GM/15 ML 15 ML UD Cup PO ONE (18:15)
[2024-01-24] MEDS: Bisacodyl 10 MG Supp RECTAL ONE (18:15)
[2024-01-24] MEDS: Dextrose 5% in Water 1,000 ML IV SCH (20:08)
[2024-01-24] MEDS: lamoTRIgine 100 MG Tab PO SCH (20:22)
[2024-01-24] MEDS: PHENobarbital 32.4 MG Tab PO SCH (20:23)
[2024-01-24] MEDS: lamoTRIgine 25 MG Tab PO SCH (20:56)
[2024-01-24] MEDS: Phenytoin 100 MG Cap.ER PO SCH (20:57)
[2024-01-24 23:44] LABS: CALCIUM 8.1 mg/dL (8.5-10.1); CARBON DIOXIDE,CO2 33.7 mmol/L (21.0-32.0); CREATININE 1.3 mg/dL (0.8-1.3); EST CRCL DRUG DOSING (CG) 51.49 mL/min; POTASSIUM,K 3.5 mmol/L (3.5-5.1)
[2024-01-25] MEDS: Nystatin Topical Powder 15 GM Bottle TOP SCH (05:00)
[2024-01-25 06:03] LABS: BASOPHILS ABSOLUTE AUTO 0.04 K/uL (0.00-0.20); BASOPHILS PERCENT AUTO 0.3 % (0.0-1.0); EOSINOPHILS ABSOLUTE AUTO 0.49 K/uL (0.00-0.45); EOSINOPHILS PERCENT AUTO 3.3 % (0.0-6.0); HEMATOCRIT 38.4 % (42.0-52.0); HEMOGLOBIN 12.3 g/dL (14.0-18.0); IMMATURE GRAN ABSOLUTE AUTO 0.08 K/uL (0.00-0.05); IMMATURE GRAN PERCENT AUTO 0.5 % (0.0-0.4); LYMPHOCYTES ABSOLUTE AUTO 0.95 K/uL (1.00-4.80); LYMPHOCYTES PERCENT AUTO 6.5 % (24.0-44.0); MEAN CORPUSCULAR HEMOGLOBIN 31.5 pg (28.0-32.0); MEAN CORPUSCULAR VOLUME 98.2 fL (83.0-99.0); MEAN PLATELET VOLUME 10.2 fL (9.4-12.4); MONOCYTES ABSOLUTE AUTO 0.91 K/uL (0.00-0.80); MONOCYTES PERCENT AUTO 6.2 % (0.0-8.0); NEUTROPHILS ABSOLUTE AUTO 12.24 K/uL (1.80-7.70); NEUTROPHILS PERCENT AUTO 83.2 % (41.0-71.0); PLATELET COUNT,PLT 205 K/uL (150-400); RED BLOOD CELL COUNT 3.91 M/uL (4.52-5.90); WHITE BLOOD CELL COUNT,WBC 14.71 K/uL (3.9-11.3)
[2024-01-25 06:21] LABS: CALCIUM 8.2 mg/dL (8.5-10.1); CARBON DIOXIDE,CO2 33.3 mmol/L (21.0-32.0); CREATININE 1.2 mg/dL (0.8-1.3); EST CRCL DRUG DOSING (CG) 55.78 mL/min; MAGNESIUM 2.4 mg/dL (1.8-2.4); POTASSIUM,K 3.4 mmol/L (3.5-5.1)
[2024-01-25] MEDS: Pantoprazole 40 MG Tab.CR PO SCH (07:11)
[2024-01-25] MEDS: Multivitamin Tab PO SCH (08:06)
[2024-01-25] MEDS: Aspirin 81 MG Tab.EC PO SCH (08:06)
[2024-01-25] MEDS: risperiDONE 0.25 MG Tab PO SCH (08:06)
[2024-01-25] MEDS: Polyethylene Glycol 3350 Powder 17 GM Packet PO SCH (08:06)
[2024-01-25] MEDS: Desvenlafaxine Succinate 25 MG TAB.ER PO SCH (09:10)
[2024-01-25] MEDS ORDERED: Hydrocortisone 1% Crm 30 GM Tube TOP PRN (09:30)
[2024-01-25 12:21] LABS: CARBON DIOXIDE,CO2 30.5 mmol/L (21.0-32.0); CREATININE 1.2 mg/dL (0.8-1.3); EST CRCL DRUG DOSING (CG) 55.78 mL/min; POTASSIUM,K 3.4 mmol/L (3.5-5.1)
[2024-01-25] MEDS: Nicotine 14 MG/24 Hr Patch TRDERM PRN (13:17)
[2024-01-26] MEDS: Bisacodyl 10 MG Supp RECTAL PRN (06:35)
[2024-01-26 06:36] LABS: BASOPHILS ABSOLUTE AUTO 0.04 K/uL (0.00-0.20); BASOPHILS PERCENT AUTO 0.4 % (0.0-1.0); EOSINOPHILS PERCENT AUTO 5.3 % (0.0-6.0); HEMOGLOBIN 12.7 g/dL (14.0-18.0); IMMATURE GRAN ABSOLUTE AUTO 0.07 K/uL (0.00-0.05); IMMATURE GRAN PERCENT AUTO 0.6 % (0.0-0.4); LYMPHOCYTES PERCENT AUTO 8.8 % (24.0-44.0); MEAN CORPUSCULAR HEMOGLOBIN 31.2 pg (28.0-32.0); MEAN CORPUSCULAR HGB CONC 32.6 g/dL (32.0-36.0); MEAN CORPUSCULAR VOLUME 95.8 fL (83.0-99.0); MEAN PLATELET VOLUME 10.8 fL (9.4-12.4); MONOCYTES ABSOLUTE AUTO 0.82 K/uL (0.00-0.80); MONOCYTES PERCENT AUTO 7.2 % (0.0-8.0); NEUTROPHILS ABSOLUTE AUTO 8.88 K/uL (1.80-7.70); NEUTROPHILS PERCENT AUTO 77.7 % (41.0-71.0); PLATELET COUNT,PLT 230 K/uL (150-400); RED BLOOD CELL COUNT 4.07 M/uL (4.52-5.90); WHITE BLOOD CELL COUNT,WBC 11.41 K/uL (3.9-11.3)
[2024-01-26 06:56] LABS: A/G RATIO 0.7 (0.9-1.6); ALBUMIN 2.6 g/dL (3.4-5.0); BILIRUBIN TOTAL 0.5 mg/dL (0.2-1.0); CALCIUM 8.5 mg/dL (8.5-10.1); CREATININE 1.1 mg/dL (0.8-1.3); EST CRCL DRUG DOSING (CG) 60.85 mL/min; POTASSIUM,K 3.6 mmol/L (3.5-5.1); PROTEIN TOTAL,TP 6.5 g/dL (6.4-8.2)
[2024-01-26] MEDS: Melatonin 3 MG Tab PO PRN (21:36)
[2024-01-27 06:29] LABS: BASOPHILS ABSOLUTE AUTO 0.03 K/uL (0.00-0.20); BASOPHILS PERCENT AUTO 0.4 % (0.0-1.0); EOSINOPHILS ABSOLUTE AUTO 0.58 K/uL (0.00-0.45); EOSINOPHILS PERCENT AUTO 7.2 % (0.0-6.0); HEMATOCRIT 36.3 % (42.0-52.0); HEMOGLOBIN 12.4 g/dL (14.0-18.0); IMMATURE GRAN ABSOLUTE AUTO 0.06 K/uL (0.00-0.05); IMMATURE GRAN PERCENT AUTO 0.7 % (0.0-0.4); LYMPHOCYTES ABSOLUTE AUTO 0.75 K/uL (1.00-4.80); LYMPHOCYTES PERCENT AUTO 9.3 % (24.0-44.0); MEAN CORPUSCULAR HEMOGLOBIN 31.6 pg (28.0-32.0); MEAN CORPUSCULAR HGB CONC 34.2 g/dL (32.0-36.0); MEAN CORPUSCULAR VOLUME 92.4 fL (83.0-99.0); MEAN PLATELET VOLUME 10.2 fL (9.4-12.4); MONOCYTES ABSOLUTE AUTO 0.62 K/uL (0.00-0.80); MONOCYTES PERCENT AUTO 7.7 % (0.0-8.0); NEUTROPHILS ABSOLUTE AUTO 5.99 K/uL (1.80-7.70); NEUTROPHILS PERCENT AUTO 74.7 % (41.0-71.0); PLATELET COUNT,PLT 240 K/uL (150-400); RED BLOOD CELL COUNT 3.93 M/uL (4.52-5.90); WHITE BLOOD CELL COUNT,WBC 8.03 K/uL (3.9-11.3)
[2024-01-27 06:51] LABS: A/G RATIO 0.6 (0.9-1.6); ALBUMIN 2.2 g/dL (3.4-5.0); BILIRUBIN TOTAL 0.4 mg/dL (0.2-1.0); CALCIUM 8.6 mg/dL (8.5-10.1); CARBON DIOXIDE,CO2 31.1 mmol/L (21.0-32.0); EST CRCL DRUG DOSING (CG) 66.66 mL/min; POTASSIUM,K 3.5 mmol/L (3.5-5.1); PROTEIN TOTAL,TP 6.1 g/dL (6.4-8.2)
[2024-01-27] MEDS: guaiFENesin 600 MG Tab.ER PO SCH (12:34)
[2024-01-28 06:41] LABS: BASOPHILS ABSOLUTE AUTO 0.04 K/uL (0.00-0.20); BASOPHILS PERCENT AUTO 0.5 % (0.0-1.0); EOSINOPHILS ABSOLUTE AUTO 0.62 K/uL (0.00-0.45); EOSINOPHILS PERCENT AUTO 7.2 % (0.0-6.0); HEMATOCRIT 41.5 % (42.0-52.0); HEMOGLOBIN 13.4 g/dL (14.0-18.0); IMMATURE GRAN ABSOLUTE AUTO 0.08 K/uL (0.00-0.05); IMMATURE GRAN PERCENT AUTO 0.9 % (0.0-0.4); LYMPHOCYTES ABSOLUTE AUTO 0.76 K/uL (1.00-4.80); LYMPHOCYTES PERCENT AUTO 8.9 % (24.0-44.0); MEAN CORPUSCULAR HEMOGLOBIN 30.8 pg (28.0-32.0); MEAN CORPUSCULAR HGB CONC 32.3 g/dL (32.0-36.0); MEAN CORPUSCULAR VOLUME 95.4 fL (83.0-99.0); MONOCYTES ABSOLUTE AUTO 0.73 K/uL (0.00-0.80); MONOCYTES PERCENT AUTO 8.5 % (0.0-8.0); NEUTROPHILS ABSOLUTE AUTO 6.35 K/uL (1.80-7.70); PLATELET COUNT,PLT 265 K/uL (150-400); RED BLOOD CELL COUNT 4.35 M/uL (4.52-5.90); WHITE BLOOD CELL COUNT,WBC 8.58 K/uL (3.9-11.3)
[2024-01-28 07:01] LABS: CALCIUM 8.6 mg/dL (8.5-10.1); CREATININE 1.1 mg/dL (0.8-1.3); EST CRCL DRUG DOSING (CG) 60.6 mL/min; MAGNESIUM 2.5 mg/dL (1.8-2.4); POTASSIUM,K 3.6 mmol/L (3.5-5.1)
[2024-01-28] MEDS: methylPREDNISolone Sodium Succinate 40 MG/1 ML SDV IVPUSH SCH (12:27)
[2024-01-29 06:53] LABS: BASOPHILS ABSOLUTE AUTO 0.07 K/uL (0.00-0.20); BASOPHILS PERCENT AUTO 0.7 % (0.0-1.0); EOSINOPHILS ABSOLUTE AUTO 0.69 K/uL (0.00-0.45); EOSINOPHILS PERCENT AUTO 7.2 % (0.0-6.0); HEMATOCRIT 40.2 % (42.0-52.0); HEMOGLOBIN 13.6 g/dL (14.0-18.0); IMMATURE GRAN ABSOLUTE AUTO 0.17 K/uL (0.00-0.05); IMMATURE GRAN PERCENT AUTO 1.8 % (0.0-0.4); LYMPHOCYTES ABSOLUTE AUTO 1.08 K/uL (1.00-4.80); LYMPHOCYTES PERCENT AUTO 11.2 % (24.0-44.0); MEAN CORPUSCULAR HEMOGLOBIN 31.5 pg (28.0-32.0); MEAN CORPUSCULAR HGB CONC 33.8 g/dL (32.0-36.0); MEAN CORPUSCULAR VOLUME 93.1 fL (83.0-99.0); MEAN PLATELET VOLUME 9.9 fL (9.4-12.4); MONOCYTES PERCENT AUTO 8.3 % (0.0-8.0); NEUTROPHILS PERCENT AUTO 70.8 % (41.0-71.0); PLATELET COUNT,PLT 290 K/uL (150-400); RED BLOOD CELL COUNT 4.32 M/uL (4.52-5.90); WHITE BLOOD CELL COUNT,WBC 9.61 K/uL (3.9-11.3)
[2024-01-29 07:24] LABS: A/G RATIO 0.6 (0.9-1.6); ALBUMIN 2.6 g/dL (3.4-5.0); BILIRUBIN TOTAL 0.3 mg/dL (0.2-1.0); CARBON DIOXIDE,CO2 31.2 mmol/L (21.0-32.0); CREATININE 1.1 mg/dL (0.8-1.3); EST CRCL DRUG DOSING (CG) 60.6 mL/min; POTASSIUM,K 4.2 mmol/L (3.5-5.1); PROTEIN TOTAL,TP 6.9 g/dL (6.4-8.2)
[2024-01-29 10:18] VITALS: BP 142/62
[2024-01-29 13:51] VITALS: PULSE 84
== END 2024-01-29 13:51 | DRG 871 ==
LOC: MW.ED 11:34 → MW.MS 15:54
PROVIDERS: ADMIT Family Medicine; ATTEND Family Medicine
PROC: 0T9B70Z Drainage of Bladder with Drainage Device, Via Natural or Artificial Opening (ICD-10-PCS; principal; 2024-01-24)
PROC: 3E03329 Introduction of Other Anti-infective into Peripheral Vein, Percutaneous Approach (ICD-10-PCS; 2024-01-24)
DX: A41.9 Sepsis, unspecified organism (principal); J18.9 Pneumonia, unspecified organism; J96.01 Acute respiratory failure with hypoxia; G81.91 Hemiplegia, unspecified affecting right dominant side; E87.1 Hypo-osmolality and hyponatremia; Z88.8 Allergy status to other drugs, medicaments and biological substances; N17.9 Acute kidney failure, unspecified; Z75.8 Other problems related to medical facilities and other health care; H54.7 Unspecified visual loss; K21.9 Gastro-esophageal reflux disease without esophagitis; F32.A Depression, unspecified; G40.909 Epilepsy, unspecified, not intractable, without status epilepticus; K59.00 Constipation, unspecified; N32.89 Other specified disorders of bladder; Z88.2 Allergy status to sulfonamides; Z88.1 Allergy status to other antibiotic agents; Z79.899 Other long term (current) drug therapy; Z79.51 Long term (current) use of inhaled steroids; Z79.82 Long term (current) use of aspirin; Z87.440 Personal history of urinary (tract) infections; Z90.49 Acquired absence of other specified parts of digestive tract; Z98.890 Other specified postprocedural states; Z87.81 Personal history of (healed) traumatic fracture; Z87.820 Personal history of traumatic brain injury
CPT/HCPCS: 0240U; 36415; 51702; 71260; 74177; 80048; 80053; 81001; 82947; 83605; 83690; 83735; 84484; 85025; 87040; 96365; 96367; 96375; 97162; 99285; 99284; A9270-GY; J0456; J0692; J1644; J2405; J2470; J2543; J2919; J3372; J3490; J7030; J7040; J7050; J7060; Q9967

== ENCOUNTER 2024-09-25 22:39 | Emergency (ER) | payer MEDICARE, MEDICAID ==
[2024-09-25 22:52] LABS: BASOPHILS ABSOLUTE AUTO 0.03 K/uL (0.00-0.20); BASOPHILS PERCENT AUTO 0.4 % (0.0-1.0); EOSINOPHILS ABSOLUTE AUTO 0.65 K/uL (0.00-0.45); EOSINOPHILS PERCENT AUTO 8.0 % (0.0-6.0); IMMATURE GRAN ABSOLUTE AUTO 0.03 K/uL (0.00-0.05); IMMATURE GRAN PERCENT AUTO 0.4 % (0.0-0.4); LYMPHOCYTES ABSOLUTE AUTO 1.17 K/uL (1.00-4.80); LYMPHOCYTES PERCENT AUTO 14.3 % (24.0-44.0); MEAN PLATELET VOLUME 10.2 fL (9.4-12.4); MONOCYTES ABSOLUTE AUTO 0.65 K/uL (0.00-0.80); MONOCYTES PERCENT AUTO 8.0 % (0.0-8.0); NEUTROPHILS ABSOLUTE AUTO 5.64 K/uL (1.80-7.70); NEUTROPHILS PERCENT AUTO 68.9 % (41.0-71.0); NRBC ABSOLUTE 0.00 K/uL (0.00-0.02); NRBC PERCENT 0.0 /100WBC (0.0-0.2); PLATELET COUNT,PLT 213 K/uL (150-400); RED BLOOD CELL COUNT 4.27 M/uL (4.52-5.90); WHITE BLOOD CELL COUNT,WBC 8.17 K/uL (3.9-11.3)
[2024-09-25 23:23] LABS: BLOOD UREA NITROGEN,BUN 29 mg/dL (7.0-18.0); CARBON DIOXIDE,CO2 33.5 mmol/L (21.0-32.0); CHLORIDE,CL 100 mmol/L (98-107); CREATININE 1.5 mg/dL (0.8-1.3); ESTIMATED GFR 48 mL/min (>60); GLUCOSE RANDOM 111 mg/dL (74-106); POTASSIUM,K 4.1 mmol/L (3.5-5.1); PRO B-TYPE NATRIUR PEPT,BNPPRO 253 pg/mL (0-450); SODIUM,NA 138 mmol/L (136-148)
[2024-09-25] MEDS: methylPREDNISolone Sodium Succinate 125 MG/2 ML SDV IVPUSH ONE (23:52)
[2024-09-26 00:01] VITALS: PULSE 79
[2024-09-26 00:43] VITALS: BP 119/64
== END 2024-09-26 00:54 | disposition home or self-care (01) ==
LOC: MW.ED 22:39
DX: J44.1 Chronic obstructive pulmonary disease with (acute) exacerbation (principal); I50.9 Heart failure, unspecified; K21.9 Gastro-esophageal reflux disease without esophagitis; F17.210 Nicotine dependence, cigarettes, uncomplicated; Z86.73 Personal history of transient ischemic attack (TIA), and cerebral infarction without residual deficits; Z88.2 Allergy status to sulfonamides; Z79.899 Other long term (current) drug therapy
CPT/HCPCS: 36415; 71045; 80048; 83880; 84484; 85025; 93005; 96374; 99285; A9270; J2919; 99284